=== PATIENT | female | born 1995 | race Caucasian/White ===

== ENCOUNTER 2016-12-21 15:55 | Emergency (ER) | payer OTHER ==
[~2016-12-21] VITALS: Ht 157.5 cm; Wt 45.0 kg
[2016-12-21 16:04] VITALS: BP 128/92; PULSE 123; RESP 18; TEMP 98.2; O2SAT 99
[2016-12-21] MEDS ORDERED: birth control pill (16:16)
[2016-12-21] MEDS ORDERED: SODIUM CHLOR 0.9% 1000 ML INJ 1,000 ML IV ONE (16:16)
--- NOTE | 2016-12-21 16:25 | PD ---
HPI Chief Complaint: General Weakness Time Seen by Provider: 16:10 Travel History International Travel<30 days: No Contact w/Intl Traveler<30days: No Traveled to known affect area: No History of Present Illness HPI This is a 21-year-old female who presents via EMS for evaluation of tremors, shortness of breath. The patient reports that she traveled here from [facility] and was in a hot tub today. She began feeling shortness of breath. She reports that water felt like he was compressing her chest wall and making her feel short of breath. She has had that sensation before. She did not aspirate any water. She got out of the water and was quite tremulous and EMS was called. According to the paramedics her heart rate was in the 140s to 150s initially. She was given 500 mL bolus of fluids. The patient currently feels tremulous and nauseous and and jittery. She denies any chest pain, abdominal pain, anxiety, vomiting, diarrhea or constipation. Her last missed her period was one week ago. She is on control. She is not on any other medications. She denies any drug use. No other complaints. [facility] Past Medical History ?: Not LMP: 2 weeks ago Social History Alcohol Use: No Tobacco Use: No Allergies-Medications (Allergen,Severity, Reaction): Coded Allergies: No Known Allergies (Unverified , 12/21/16) Reported Meds & Prescriptions Reported Meds & Active Scripts Active Reported [ control pill] Review of Systems Except as stated in HPI: all other systems reviewed are Neg Physical Exam Narrative GENERAL: This is a well-developed well-nourished female who appears somewhat anxious on initial examination. Her heart rate is in the 110s. SKIN: Warm and dry. HEAD: Atraumatic. Normocephalic. EYES: Pupils equal and round. No scleral icterus. No injection or drainage. ENT: No nasal bleeding or discharge. Mucous membranes pink and moist. NECK: Trachea midline. No JVD. CARDIOVASCULAR: Regular rate and rhythm. No murmur appreciated. RESPIRATORY: No accessory muscle use. Clear to auscultation. Breath sounds equal bilaterally. GASTROINTESTINAL: Abdomen soft, non-tender, nondistended. Hepatic and splenic margins not palpable. MUSCULOSKELETAL: No obvious deformities. No clubbing. No cyanosis. No edema. NEUROLOGICAL: Awake and alert. No obvious cranial nerve deficits. Motor grossly within normal limits. Normal speech. Mildly tremulous. PSYCHIATRIC: Appropriate mood and affect; insight and judgment normal. Data Data Last Documented VS Vital Signs Date Time Temp Pulse Resp B/P Pulse Ox O2 Delivery O2 Flow Rate FiO2 12/21/16 16:38 108 18 97 Nasal Cannula 2 12/21/16 16:04 98.2 128/92 Orders Electrocardiogram (12/21/16 ) Basic Metabolic Panel (Bmp) (12/21/16 16:16) Ed Urine Pregnancytest Poc (12/21/16 16:16) Complete Blood Count With Diff (12/21/16 16:16) Magnesium (Mg) (12/21/16 16:16) Sodium Chlor 0.9% 1000 Ml Inj (Ns 1000 M (12/21/16 16:16) Lorazepam Inj (Ativan Inj) (12/21/16 16:30) Creatine Kinase (Cpk) (12/21/16 16:16) Drug Screen, Random Urine (12/21/16 16:17) D-Dimer (12/21/16 16:19) Ondansetron Inj (Zofran Inj) (12/21/16 16:30) Chest, Single Ap (12/21/16 ) Metoclopramide Inj (Reglan Inj) (12/21/16 17:00) Sodium Chlor 0.9% 1000 Ml Inj (Ns 1000 M (12/21/16 17:45) Labs Laboratory Tests Test 12/21/16 16:28 White Blood Count 7.6 TH/MM3 Red Blood Count 3.77 MIL/MM3 Hemoglobin 11.2 GM/DL Hematocrit 32.7 % Mean Corpuscular Volume 86.7 FL Mean Corpuscular Hemoglobin 29.7 PG Mean Corpuscular Hemoglobin 34.2 % Concent Red Cell Distribution Width 12.3 % Platelet Count 221 TH/MM3 Mean Platelet Volume 8.3 FL Neutrophils (%) (Auto) 62.4 % Lymphocytes (%) (Auto) 28.2 % Monocytes (%) (Auto) 8.0 % Eosinophils (%) (Auto) 1.1 % Basophils (%) (Auto) 0.3 % Neutrophils # (Auto) 4.7 TH/MM3 Lymphocytes # (Auto) 2.1 TH/MM3 Monocytes # (Auto) 0.6 TH/MM3 Eosinophils # (Auto) 0.1 TH/MM3 Basophils # (Auto) 0.0 TH/MM3 CBC Comment DIFF FINAL Differential Comment D-Dimer Quantitative (PE/DVT) 0.20 MG/L FEU Sodium Level 143 MEQ/L Potassium Level 3.8 MEQ/L Chloride Level 110 MEQ/L Carbon Dioxide Level 24.7 MEQ/L Anion Gap 8 MEQ/L Blood Urea Nitrogen 11 MG/DL Creatinine 0.72 MG/DL Estimat Glomerular Filtration 103 ML/MIN Rate Random Glucose 124 MG/DL Calcium Level 8.4 MG/DL Magnesium Level 1.9 MG/DL Total Creatine Kinase 29 U/L Urine Opiates Screen NEG Urine Barbiturates Screen NEG Urine Amphetamines Screen NEG Urine Benzodiazepines Screen NEG Urine Cocaine Screen NEG Urine Cannabinoids Screen NEG MDM Medical Decision Making Medical Screen Exam Complete: Yes Emergency Medical Condition: Yes Medical Record Reviewed: Yes Interpretation(s) EKG sinus tachycardia rate 118 Urine test negative, d-dimer negative, toxicology screen negative Differential Diagnosis Anxiety, PE, spontaneous pneumothorax, electrolyte abnormality, dehydration, rhabdomyolysis, muscle spasm Narrative Course This is a 21-year-old female who developed shortness of breath and tremors after swimming in a hot tub. On initial examination she is tachycardic and appears anxious. She has tremors in the extremities. Plan is for basic lab work, chest x-ray, EKG, ECG monitoring, IV fluids, 0.5 mg dose of Ativan. She was given Zofran for nausea. Upon reexamination the patient is feeling somewhat improved, she briefly had some double vision and persistent nausea and therefore Reglan was administered. Upon reexamination she is feeling improved. Her heart rate has improved to the low 100s/high 90s. Her lab work is been reviewed and found to be unremarkable. The patient Will be discharged into the care of her family members. Procedures EKG Prior to Arrival: Yes Diagnosis Primary Impression: Tremor Additional Impression: Tachycardia Additional Instructions: Stay well-hydrated and well-nourished. Follow-up with primary care physician as needed. Return for any acutely new or worsening symptoms. Med/Other Pt SpecificInfo: No Change to Meds Disposition: 01 DISCHARGE HOME Condition: Stable Corby Thomas Dec 21, 2016 16:25 Corby Thomas Dec 21, 2016 16:25
[2016-12-21] MEDS ORDERED: ONDANSETRON HCL 4 MG/2 ML VIAL IV PUSH ONE (16:30)
[2016-12-21] MEDS ORDERED: LORazepam 2 MG/ML VIAL IV PUSH ONE (16:30)
[2016-12-21 16:42] LABS: AUTOMATED NEUTROPHIL # 4.7 TH/MM3 (1.8-7.7); BASOPHIL % 0.3 % (0.0-2.0); EOSINOPHIL # 0.1 TH/MM3 (0-0.4); EOSINOPHIL % 1.1 % (0.0-4.0); HEMATOCRIT 32.7 % (35.0-46.0); HEMO FLAGS DIFF FINAL; LYMPH % 28.2 % (9.0-44.0); LYMPHOCYTE # 2.1 TH/MM3 (1.0-4.8); MEAN CELL VOLUME 86.7 FL (80.0-100.0); MEAN CORPUSCULAR HEMOGLOBIN 29.7 PG (27.0-34.0); MEAN CORPUSCULAR HGB CONC 34.2 % (32.0-36.0); NEUT % 62.4 % (16.0-70.0); PLATELET COUNT 221 TH/MM3 (150-450); RED BLOOD COUNT 3.77 MIL/MM3 (4.00-5.30); RED CELL DISTRIBUTION WIDTH 12.3 % (11.6-17.2); WHITE BLOOD COUNT 7.6 TH/MM3 (4.0-11.0)
[2016-12-21 16:48] LABS: AMPHETAMINE, URINE NEG (NEG); BARBITURATES, URINE NEG (NEG); COCAINE, URINE NEG (NEG)
--- NOTE | 2016-12-21 16:57 | RADRPT ---
EXAM DATE/TIME: 12/21/2016 16:26 [facility] COMPARISON: No previous studies available for comparison. INDICATIONS : Shortness of breath post convulsive episode. MEDICAL HISTORY : None. SURGICAL HISTORY : None. ENCOUNTER: Initial ACUITY: 1 day PAIN SCORE: 0/10 LOCATION: Bilateral chest FINDINGS: A single view of the chest demonstrates the lungs to be symmetrically aerated without evidence of mas s, infiltrate or effusion. The cardiomediastinal contours are unremarkable. Osseous structures are intact. CONCLUSION: No acute disease. Dallas Perkins MD on December 21, 2016 at 16:54 Board Certified Radiologist. This report was verified electronically.
[2016-12-21] MEDS ORDERED: METOCLOPRAMIDE HCL 10 MG/2 ML VIAL IV PUSH ONE (17:00)
[2016-12-21 17:06] LABS: BICARBONATE 24.7 MEQ/L (21.0-32.0); MAGNESIUM 1.9 MG/DL (1.5-2.5); POTASSIUM 3.8 MEQ/L (3.5-5.1)
[2016-12-21] MEDS ORDERED: SODIUM CHLOR 0.9% 1000 ML INJ 1,000 ML IV SCH (17:45)
--- NOTE | 2016-12-21 21:34 | EKG ---
Date Performed: 12/21/2016 Time Performed: 16:11:18 PTAGE: 21 years EKG: SINUS TACHYCARDIA ABNORMAL RHYTHM ECG NO PREVIOUS TRACING DOCTOR: Manjeet Valentin Interpretating Date/Time 12/21/2016 21:32:10
== END 2016-12-21 18:55 | disposition home or self-care (01) ==
LOC: NEPE 15:55
DX: R25.1 Tremor, unspecified (principal); R00.0 Tachycardia, unspecified; R06.02 Shortness of breath; R11.0 Nausea; R94.31 Abnormal electrocardiogram [ECG] [EKG]; Z79.3 Long term (current) use of hormonal contraceptives
CPT/HCPCS: 71010; 80048; 80307; 82550; 83735; 84703; 85025; 85379; 93005; 96361; 96374; 96375; 99285; J2060; J2405; J2765; J7030